=== PATIENT | female | born 1985 | race Caucasian/White ===

== ENCOUNTER 2016-11-22 13:42 | Emergency (ER) | payer OTHER | END 2016-11-22 16:57 | disposition critical access hospital (66) | LOC: ER 13:42 | DX: N10 Acute pyelonephritis (principal); F17.210 Nicotine dependence, cigarettes, uncomplicated; Z90.710 Acquired absence of both cervix and uterus; Z79.899 Other long term (current) drug therapy | CPT/HCPCS: 36415; 51702; 96361; 96365; 96375; 96376; J0696; J1885 ==

== ENCOUNTER 2016-11-22 13:42 | Inpatient (IN) | payer OTHER ==
[~2016-11-22] VITALS: Ht 170.2 cm; Wt 65.4 kg
--- NOTE | 2016-11-24 14:39 | NUR ---
REPORT GIVEN TO MERLE ROJAS RN TO TAKE OVER CARE OF PATIENT
--- NOTE | 2016-11-24 15:56 | NUR ---
1500- RECEIVED REPORT ON PATIENT FROM Lynne GIRARD RN
== END 2016-11-26 13:30 | disposition home or self-care (01) | DRG 690 ==
LOC: ER 13:42 → MED 16:58
PROVIDERS: ADMIT Internal Medicine
DX: N12 Tubulo-interstitial nephritis, not specified as acute or chronic (principal); N13.30 Unspecified hydronephrosis; E87.6 Hypokalemia; N17.9 Acute kidney failure, unspecified; F17.210 Nicotine dependence, cigarettes, uncomplicated; R33.9 Retention of urine, unspecified; Z87.440 Personal history of urinary (tract) infections; Z85.41 Personal history of malignant neoplasm of cervix uteri; Z90.710 Acquired absence of both cervix and uterus; Z79.899 Other long term (current) drug therapy; Z80.3 Family history of malignant neoplasm of breast; Z83.3 Family history of diabetes mellitus; Z82.49 Family history of ischemic heart disease and other diseases of the circulatory system
CPT/HCPCS: 36415; J0696; J1885